=== PATIENT | female | born 1940 | race Hispanic/Latino ===

== ENCOUNTER 2018-03-15 07:07 | Inpatient (IN) | payer MEDICARE ==
[~2018-03-15] VITALS: Ht 154.9 cm; Wt 94.6 kg
[2018-03-15] VITALS (7 sets, daily range): BP systolic 147–190; BP diastolic 67–104
[~2018-03-15 07:07] MED LIST: ASPIR 8181 MG PO; CLONIDINE HCL0.1 MG PO; DIOVAN160 MG PO; FUROSEMIDE40 MG PO; GLIMEPIRIDE2 MG PO; HYDRALAZINE HCL25 MG PO; LABETALOL HCL200 MG PO; LANTUS 3ML100 UNITS/ SC; LASIX40 MG PO; LEVAQUIN500 MG PO; LOVASTATIN40 MG PO; SODIUM BICARBO650 MG PO; TERBINAFINE HC250 MG PO
[2018-03-15] MEDS ORDERED: SODIUM CHLORIDE 0.9% 1000ML 1,000 ML IV SCH (07:30)
[2018-03-15 07:54] LABS: EOSINOPHILS % 0.5 % (0.0-6.0); HEMATOCRIT 23.8 % (34.2-44.1); LYMPHOCYTES # (AUTO) 0.7 (1.0-3.2); LYMPHOCYTES % 34.4 % (18.0-39.1); MEAN CORPUSCULAR HEMOGLOBIN 35.7 pg (28-32); MEAN CORPUSCULAR HGB CONC 34.5 g/dL (31-35); MEAN CORPUSCULAR VOLUME 103.5 fL (81-99); MONOCYTES # (AUTO) 0.2 (0.2-0.8); NEUTROPHILS # (AUTO) 1.2 (2.1-6.9); NEUTROPHILS % 55.2 % (38.7-80.0); PLATELET COUNT 119 x10e3/uL (140-360); RED CELL DISTRIBUTION WIDTH 17.2 % (11.7-14.4)
[2018-03-15 07:58] LABS: HEMOGLOBIN 8.2 g/dL (12.0-16.0)
[2018-03-15] MEDS ORDERED: ACETAMINOPHEN 325 MG TAB PO NR (08:00)
[2018-03-15 08:13] LABS: ALBUMIN 2.8 g/dL (3.5-5.0); ALBUMIN/GLOBULIN RATIO 0.8 (0.8-2.0); ANION GAP 16.6 mmol/L (8-16); CALCIUM 8.3 mg/dL (8.4-10.2); CREATININE, SERUM 1.65 mg/dL (0.57-1.11); POTASSIUM 3.6 mmol/L (3.5-5.1)
[2018-03-15 08:16] LABS: BILIRUBIN,URINE NEGATIVE (NEGATIVE); CLARITY,URINE CLEAR (CLEAR); COLOR,URINE YELLOW (YELLOW); KETONES,URINE NEGATIVE (NEGATIVE); LEUKOCYTE ESTERASE ,URINE NEGATIVE (NEGATIVE); NITRITE,URINE NEGATIVE (NEGATIVE); PROTEIN,URINE DIPSTICK NEGATIVE (NEGATIVE); URINE UROBILINOGEN 0.2 mg/dL (0.2 - 1)
--- NOTE | 2018-03-15 08:27 | NUR ---
DR. MARTINEZ SPOKE WITH DR. COBOS REGARDING PATIENT EKG
[2018-03-15] MEDS ORDERED: CLOPIDOGREL BISULFATE 75 MG TAB PO ONE (08:30)
[2018-03-15] MEDS ORDERED: ASPIRIN 81 MG CHEW TAB PO ONE ×2 (08:30→10:30)
[2018-03-15] MEDS ORDERED: HEPARIN 25,000U/0.45% NS 250ML 250 ML IV SCH (08:30)
[2018-03-15] MEDS ORDERED: HEPARIN SOD (PORCINE) 5,000 UNIT/ML VIAL IV ONE (08:30)
[2018-03-15] MEDS ORDERED: ATORVASTATIN 20 MG TAB PO ONE (08:30)
[2018-03-15 08:31] LABS: BACTERIA,URINE RARE /HPF; EPITHELIAL CELLS,URINE MODERATE /LPF
[2018-03-15 08:36] LABS: AMORPHOUS SEDIMENT,URINE RARE (FEW)
[2018-03-15 08:38] LABS: CHOL/HDL RATIO 3.6 (3.0-3.6); MAGNESIUM 1.8 MG/DL (1.3-2.1); PHOSPHORUS 3.4 MG/DL (2.3-4.7)
[2018-03-15] MEDS ORDERED: SODIUM CHLORIDE 0.9% 250ML 250 ML IV ONE (08:45)
[2018-03-15 08:51] LABS: INR 1.1; PROTHROMBIN TIME 15.2 seconds (11.9-14.5)
[2018-03-15] MEDS ORDERED: FAMOTIDINE 20 MG/2 ML VIAL IV SCH (09:00)
--- NOTE | 2018-03-15 09:03 | Diagnostic Imaging Report ---
PROCEDURE: CHEST SINGLE (PORTABLE) COMPARISON: Although the patient has had prior chest x-rays these are not currently available to download and compare with to PACS retrieval issues. INDICATIONS: WEAKNESS, FEVER FINDINGS: LUNGS: Mild pulmonary interstitial edema.Focal air space opacity in the right lung base. PLEURA: No effusions or pneumothorax. HEART & MEDIASTINUM: The heart is enlarged. BONES & SOFT TISSUES: No acute findings. CONCLUSION: 1. Cardiomegaly with mild interstitial pulmonary edema. 2. Focal opacity in the right lung base may represent superimposed infection. Kendall Jones D.O. Dictated by: Kendall Jones D.O. on 03/15/2018 at 9:13 Electronically approved by: Kendall Jones D.O. on 03/15/2018 at 9:13
--- NOTE | 2018-03-15 09:30 | NUR ---
CALLED LAB, AWAITING PTT RESULTS
[2018-03-15] MEDS ORDERED: CEFTRIAXONE SOD 1 GM VIAL IV SCH (09:45)
--- NOTE | 2018-03-15 09:55 | NUR ---
MARLENA FROM LAB CALLED TO REPORT PTT 38.2. KRISTEN CARMICHAEL RN PRIMARY NURSE.
[2018-03-15] MEDS ORDERED: AZITHROMYCIN 500MG/NS 250 ML 250 ML IV SCH (10:00)
[2018-03-15] MEDS ORDERED: CEFTRIAXONE SOD 1 GM/NS 50 ML 50 ML IV SCH (10:00)
[2018-03-15] MEDS ORDERED: NITROGLYCERIN 0.4 MG SUBL SL PRN (10:30)
[2018-03-15] MEDS ORDERED: FAMOTIDINE 20 MG TAB PO SCH (10:30)
[2018-03-15] MEDS ORDERED: DEXTROSE 50% SYRINGE 50 ML IV PRN (10:30)
[2018-03-15] MEDS ORDERED: SODIUM CHLORIDE FLUSH 10 ML SYR INJ PRN (10:30)
--- OUTSIDE RECORDS SUMMARY | 2018-03-15 10:33 | XMS REPORT ---
Author [facility] Address Unknown Phone Unavailable Care Team Providers Care Certified Orthoptist Name Role Phone Camden MARTINEZ Unavailable Unavailable Problems This patient has no known problems. Allergies, Adverse Reactions, Alerts This patient has no known allergies or adverse reactions. Medications This patient has no known medications. Results Test Description Test Time Test Comments Text Results Atomic Results Result Comments CHEST SINGLE (PORTABLE) 2018-03-15 09:14:00 [place] [address] Patient Name: OSCAR ALEX MR #: [id number] : 1940 Age/Sex: 77/F Req #: [id number] Adm Physician: Ordered by: PILY MARTINEZ MD Report #: [id number] Location: ER Room/Bed: Procedure: [id number] DX/CHEST SINGLE (PORTABLE) Exam Date: 03/15/18 Exam Time: 0837 REPORT STATUS: Signed PROCEDURE: CHEST SINGLE (PORTABLE) COMPARISON: Although the patient has had prior chest x-rays these are not currently available to download and compare with to PACS retrieval issues. INDICATIONS: WEAKNESS, FEVER FINDINGS: LUNGS: Mild pulmonary interstitial edema. Focal air space opacity in the right lung base. PLEURA: No effusions or pneumothorax. HEART MEDIASTINUM: The heart is enlarged. BONES SOFT TISSUES: No acute findings. CONCLUSION: 1. Cardiomegaly with mild interstitial pulmonary edema. 2. Focal opacity in the right lung base may represent superimposed infection. Lois Zambrano D.O. Dictated by: Lois Zambrano D.O. on 03/15/2018 at 9:13 Electronically approved by: Lois Zambrano D.O. on 03/15/2018 at 9:13 Dictated By: LOIS ZAMBRANO DO 3 Transcribed By: RBENDA on 03/15/18913 COPY TO: PILY MARTINEZ MD
[2018-03-15] MEDS ORDERED: METOPROLOL TARTRATE 25 MG TAB PO SCH (11:00)
[2018-03-15] MEDS ORDERED: INSULIN REGULAR, HUMAN 100 UNIT/1 ML 3ML VIAL SQ SCH (11:30)
[2018-03-15] MEDS ORDERED: IOPAMIDOL 370 MG/ML 200 ML INFUS..BTL INJ ONE ×2 (11:37→13:02)
[2018-03-15] MEDS ORDERED: SODIUM CHLORIDE 0.9% 1000ML 1,000 ML ONE (11:37)
[2018-03-15] MEDS ORDERED: HEPARIN SOD/SOD CHLORIDE 2,000 ML ONE (11:37)
[2018-03-15] MEDS ORDERED: MIDAZOLAM HCL 2 MG/2 ML VIAL ONE (11:37)
[2018-03-15] MEDS ORDERED: FENTANYL CITRATE/PF 100MCG/2 ML INJ ONE (11:37)
[2018-03-15] MEDS ORDERED: LIDOCAINE HCL 2% LOCAL 20 ML VIAL ONE (11:37)
[2018-03-15] MEDS ORDERED: VERAPAMIL HCL 2.5 MG/ML 2 ML VIAL ONE (12:01)
--- NOTE | 2018-03-15 12:08 | NUR ---
ECHO COMPLETED REPORT TO [facility]
--- NOTE | 2018-03-15 12:11 | NUR ---
TYPE AND CROSS MATCH BEING DRAWN
[2018-03-15] MEDS ORDERED: ONDANSETRON HCL INJ 2 MG/ML VIAL ONE (13:06)
[2018-03-15] MEDS ORDERED: SODIUM CHLORIDE 0.9% 500ML 500 ML ONE (13:09)
--- NOTE | 2018-03-15 14:21 | NUR ---
Report given to GUILLERMINA Morton @ [facility]. Awaiting transfer by ambulance
--- NOTE | 2018-03-15 14:24 | Consultation ---
DATE OF CONSULTATION: March 15, 2018 CARDIOLOGY CONSULTATION REASON FOR CONSULTATION: Nco-GB-dwsdctw elevation myocardial infarction. HISTORY OF PRESENT ILLNESS: This is a 77-year-old woman who has a history of hypertension, hyperlipidemia, diabetes mellitus, coronary artery disease, status post prior percutaneous coronary intervention, and obesity, who presented to the emergency department with generalized weakness. Most of the history is taken through the daughter as the patient is fairly lethargic and speaks Filipino only. Daughter states that her generalized weakness started about 4 days prior to presentation and is progressively worsening. She has no chest pain or pressure. However, does report some shortness of breath and some nausea. Upon arrival here to the emergency department, she was mildly hypertensive. Lab tests indicated an elevated troponin at 2.596. Electrocardiogram showed inferolateral T-wave inversions. She was taken to the cardiac catheterization laboratory, and was found to have severe multivessel coronary artery disease, and she will need bypass surgery. She is currently hemodynamically stable and asymptomatic from a cardiovascular standpoint. REVIEW OF SYSTEMS: A 12-point review of systems was conducted, and is negative as above. PAST MEDICAL HISTORY: Hypertension, hyperlipidemia, diabetes mellitus, coronary artery disease, obesity. PAST SURGICAL HISTORY: Percutaneous coronary intervention. FAMILY HISTORY: No premature coronary artery disease or sudden cardiac . SOCIAL HISTORY: No illicit drug use, alcohol use or tobacco use. ALLERGIES: NO KNOWN DRUG ALLERGIES. MEDICATIONS: See medication reconciliation form. PHYSICAL EXAMINATION VITALS: Temperature is 98.4, heart rate is 65, respirations are 18, blood pressure is 139/98, oxygen saturation is 98% on 2 L nasal cannula. GENERAL: She is a well-appearing, obese woman lying comfortably in bed. HEENT: Head is normocephalic and atraumatic. Eyes: Extraocular muscles are intact. Conjunctivae are clear. NECK: No JVD. No bruits. CARDIOVASCULAR: Regular rate and rhythm. No murmurs auscultated. Normal S1 and S2. LUNGS: Clear to auscultation bilaterally. No wheezing. No rales. ABDOMEN: Soft, nontender and nondistended. Normoactive bowel sounds. EXTREMITIES: No clubbing, cyanosis. There is trace edema. VASCULAR: Two plus pulses. SKIN: Warm, dry and intact. NEUROLOGIC: No focal deficits noted. Cranial nerves grossly intact. PSYCHIATRIC: Normal mood and affect. LABORATORY DATA: Reviewed. Creatinine 1.65. Troponin 2.596. LDL 68, HDL 34. White blood cell count 2.1, hemoglobin 8.2 and platelets 119,000. A 12-lead electrocardiogram showed normal sinus rhythm with occasional premature ventricular complexes and inferolateral ischemia. Chest x-ray shows mild cardiomegaly with mild interstitial pulmonary edema. IMPRESSION 1. Zdy-VW-sfwrgyq elevation myocardial infarction. 2. Multivessel coronary artery disease. 3. Diabetes mellitus. 4. Hypertension. 5. Hyperlipidemia. 6. Obesity. RECOMMENDATIONS: The patient was found to have severe left main and multivessel coronary artery disease. She received an intra-aortic balloon pump. Will discontinue Plavix. Continue aspirin and start heparin infusion. Will check a 2-D echocardiogram. The patient will require transfer to [facility] in the [facility] for bypass surgery. Job#: [id number] HALIE
--- NOTE | 2018-03-15 14:33 | Operative Report ---
DATE OF PROCEDURE: March 15, 2018 PROCEDURES PERFORMED 1. Conscious sedation, 40 minutes. 2. Selective coronary angiography times 2. 3. Left heart catheterization. 4. Insertion of natriuretic balloon pump. PREPROCEDURE DIAGNOSIS: Amr-SB-xopjbpx elevation myocardial infarction. POSTPROCEDURE DIAGNOSIS: Multivessel coronary artery disease. ESTIMATED BLOOD LOSS: Less than 20 mL. SPECIMENS REMOVED: None. PROCEDURE IN DETAIL: After informed consent was obtained, the patient was brought to the cardiac catheterization laboratory in the fasting, nonsedated state. Bilateral groins were prepped and draped in the usual sterile fashion. The right wrist was prepped and draped in the usual sterile fashion. Two percent lidocaine was infiltrated in the right anterior wrist for local anesthesia. Using micropuncture needle, the right radial artery was accessed via modified Seldinger technique, and a 6-Jamaican sheath was placed. Next, diagnostic coronary angiography was performed using a JL3.5 and JR4 catheters. Prior to this, a TIG catheter was used to enter the left ventricle and hemodynamic parameters were obtained. Diagnostic imaging confirmed severe multivessel coronary artery disease. I infiltrated 2% lidocaine in the right anterior groin for local anesthesia. Using micropuncture needle, the right common femoral artery was accessed via the modified Seldinger technique, and an 8.5-Jamaican sheath was placed. Next, a 34 mL natriuretic balloon pump was inserted over the wire and secured in place in the usual manner. The patient tolerated the procedure well with no immediate complications. She was transported back to her room in stable condition. PROCEDURE FINDINGS 1. Left main coronary artery has a severe 50% to 60% hazy stenosis. 2. Left anterior descending coronary artery has a proximal stent with severe distal 80% to 90% in-stent restenosis. The mid LAD is moderately 50% to 60% stenosed. The LAD itself provides collaterals to the right coronary artery system. 3. Left circumflex coronary artery has a severe stenosis in the proximal portion with evidence of thrombus. There is one large bifurcating obtuse marginal vessel which is patent. The distal AV groove artery leads into a second obtuse marginal vessel with luminal irregularities. 4. The right coronary artery is occluded proximally, successfully fills distally via collaterals from the septal perforators off the LAD. 5. Left ventricular end-diastolic pressure is elevated at 28 mmHg with no aortic valve gradient upon pullback. IMPRESSION AND RECOMMENDATIONS: A 77-year-old woman who presented with non-ST elevation myocardial infarction and was found to have multivessel coronary artery disease. Will refer the patient for bypass surgery. Job#: [id number] PUJA
[2018-03-15] MEDS ORDERED: SIMVASTATIN 40 MG TAB PO SCH (21:00)
[2018-03-16] MEDS ORDERED: CLOPIDOGREL BISULFATE 75 MG TAB PO SCH (09:00)
[2018-03-16] MEDS ORDERED: ASPIRIN 81 MG ENTERIC COATED PO SCH (09:00)
== END 2018-03-15 17:27 | disposition short-term general hospital (02) | DRG 272 ==
LOC: ER 07:07 → ERHOLD 10:31
PROVIDERS: ADMIT Internal Medicine; ATTEND Internal Medicine
PROC: 4A023N7 Measurement of Cardiac Sampling and Pressure, Left Heart, Percutaneous Approach (ICD-10-PCS; principal; 2018-03-15)
PROC: 5A02210 Assistance with Cardiac Output using Balloon Pump, Continuous (ICD-10-PCS; 2018-03-15)
PROC: B2111ZZ Fluoroscopy of Multiple Coronary Arteries using Low Osmolar Contrast (ICD-10-PCS; 2018-03-15)
PROC: B2151ZZ Fluoroscopy of Left Heart using Low Osmolar Contrast (ICD-10-PCS; 2018-03-15)
DX: I21.4 Non-ST elevation (NSTEMI) myocardial infarction (principal); I10 Essential (primary) hypertension; I25.10 Atherosclerotic heart disease of native coronary artery without angina pectoris; E78.5 Hyperlipidemia, unspecified; E66.9 Obesity, unspecified; Z68.39 Body mass index [BMI] 39.0-39.9, adult
CPT/HCPCS: 33970; 36415; 71045; 80053; 80061; 81001; 83605; 83735; 84100; 84484; 85025; 85610; 85730; 86850; 86900; 86920; 87040; 87086; 87400; 93005; 93306; 93458; 99284; C1766; C1769; J0456; J0696; J1644; J2001; J2250; J2405; J7030; J7040; Q9967